=== PATIENT | female | born 1940 | race Caucasian/White ===

== ENCOUNTER 2017-02-25 07:49 | Day surgery (SDC) | payer OTHER, MEDICARE ==
[2017-02-11 10:19] VITALS: BMI 26.4
--- NOTE | 2017-02-18 12:49 | HP ---
Admitting History and Physical - Primary Care Physician PCP: John Galo - Admission Chief Complaint: Right breast cancer History of Present Illness: 76 year old postmenapausal female with family H/O breast cancer. Screening mammogram showed nodular densities 12/2016. Us showed spiculated mass at 6:00 region and three separate small lesions spanning over 1.8cm region. largest focus 6mm. . 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 Breast MRI showed newly diagnosed right breast cancer localized and negative left breast. History Source: Patient Limitations to Obtaining History: No Limitations - Past Medical History Cardiovascular: Yes: Hyperlipdemia Gastrointestinal: Yes: GERD - Past Surgical History Additional Past Surgical History: bunionectomies bilateral - Smoking History Smoking history: Former smoker Have you smoked in the past 12 months: No If you are a former smoker, when did you quit?: 1960S - Alcohol/Substance Use Hx Alcohol Use: Yes (WINE WITH DINNER X SEVERAL WKLY) Home Medications - Allergies Allergies/Adverse Reactions: Allergies Allergy/AdvReac Type Severity Reaction Status Date / Time Sulfa (Sulfonamide Allergy Severe HIVES/ITCHI Verified 02/11/17 10:03 Antibiotics) NG - Home Medications Home Medications: Ambulatory Orders Aspirin Coated [Ecotrin -] 81 mg PO DAILY 02/11/17 Cholecalciferol (Vitamin D3) [Vitamin D3 -] 1,000 unit PO DAILY 02/11/17 Cyanocobalamin [Vitamin B12 -] 1,000 mcg PO DAILY 02/11/17 L.acidoph,Paracasei, B.lactis [Probiotic] 1 each PO DAILY 02/11/17 Omeprazole 40 mg PO HS 02/11/17 Simvastatin 10 mg PO HS 02/11/17 Family Disease History - Family Disease History Family Disease History: CA: Father (small bowel 65) Other Family History: 2 paternal aunts breast ca 60's Physical Examination Constitutional: Yes: Well Nourished, No Distress Breast(s): Yes: Other (ptotic C cup breast wit minimal bruising right breast S/ p core biopsies. on palpation can feel some thickening in recent bx site no suspicious masses or adenopathy palpapted) Problem List - Problems (1) Breast cancer, right Code(s): C50.911 - MALIGNANT NEOPLASM OF UNSP SITE OF RIGHT FEMALE BREAST Qualifiers: Breast location: overlapping sites of breast Patient sex: female Assessment/Plan Right breast wide excision with bracketed mammogram needle localization sentenel node biopsy, lymphoscintogram , possible axillary node dissection intraop radiation
[2017-02-25] MEDS ORDERED: MIDAZOLAM HCL 2 MG/2 ML SINGLE DOSE VIAL ONE (12:52)
[2017-02-25] MEDS ORDERED: ROCURONIUM BROMIDE 50 MG/5 ML VIAL ONE (12:52)
[2017-02-25] MEDS ORDERED: DEXAMETHASONE SOD PHOSPHATE 4 MG/1 ML VIAL ONE (12:52)
[2017-02-25] MEDS ORDERED: ceFAZolin SODIUM 1 GM VIAL ONE (12:52)
[2017-02-25] MEDS ORDERED: ONDANSETRON 4 MG/2 ML VIAL ONE ×2 (12:52→16:56)
[2017-02-25] MEDS ORDERED: PROPOFOL 20 ML ONE (12:52)
[2017-02-25] MEDS ORDERED: LIDOCAINE HCL/PF 2% SDV 5ML VIAL ONE (12:52)
[2017-02-25] MEDS ORDERED: KETOROLAC TROMETHAMINE 30 MG/1 ML VIAL ONE (12:52)
[2017-02-25] MEDS ORDERED: ISOSULFAN BLUE 10 MG/ML VIAL SQ ONE (13:27)
[2017-02-25] MEDS ORDERED: SUCCINYLCHOLINE CHLORIDE 200 MG/10 ML VIAL ONE (14:02)
[2017-02-25] MEDS ORDERED: KETOROLAC TROMETHAMINE 30 MG/1 ML VIAL IVPUSH PRN (16:44)
[2017-02-25] MEDS ORDERED: ONDANSETRON 4 MG/2 ML VIAL IVPB PRN (16:44)
[2017-02-25] MEDS ORDERED: DEXTROSE 5%-0.45% SALINE 1,000 ML IV SCH (16:45)
[2017-02-25] MEDS ORDERED: oxyCODONE HCL 5 MG TABLET PO PRN (16:56)
[2017-02-25] MEDS ORDERED: LACTATED RINGERS SOLUTION 1,000 ML IV SCH (17:00)
--- NOTE | 2017-02-25 17:25 | OP ---
DATE OF OPERATION: 02/25/2017 PREOPERATIVE DIAGNOSIS: Right breast cancer, overlapping regions. POSTOPERATIVE DIAGNOSIS: Right breast cancer, overlapping regions. PROCEDURE: A right breast partial mastectomy with mammographic needle localization, with right axillary sentinel lymph node biopsy and intraoperative radiation using a 4-cm INTRABEAM device. ANESTHESIA: General endotracheal anesthesia. PRIMARY SURGEON: John Galo MD COMPUTER METHODS ANALYST: ANJELICA Damico COMPLICATIONS: There were no complications. Briefly, the patient is a 76-year-old G3, P2, postmenopausal white female of [place] descent with a family history with 2 paternal aunts with breast cancer in their 60s. The patient was found to have a spiculated density in the right breast 6 o'clock region. An ultrasound confirmed 3 separate foci of densities spanning about 1.8 cm. She had 2 ultrasound core biopsies performed which showed infiltrating ductal cancer which was ER/LA positive and HER2/ricky negative. MRI showed localized disease. The patient was told of the need for a wide excision, was offered intraoperative radiation at the same sitting. The patient was seen by the radiation oncologist preoperatively and agreed. She understood the need for a sentinel lymph node biopsy. She was brought in for the procedure on February 25, 2017, and first underwent a mammographic needle localization of the clips in the right breast 6 o'clock region, as well as a lymphoscintigraphy at [facility], then was brought to the [place] [facility]. In the holding area, site verification was made, and informed consent was obtained. DESCRIPTION OF PROCEDURE: The patient was brought to the operating room and laid on the OR table in the supine position. Venodynes were placed on the lower extremities prior to induction. She received a gram of Ancef prior to incision. The right breast was sterilely prepped and draped in the usual fashion with the right breast prepped in the field. Lymphazurin blue 3 mL was injected intradermally and peritumorally around the needle localization site, and massage was instituted. An incision was made just above the hair-bearing area of the right axilla, and dissection was undertaken. Two sentinel nodes were easily found. The first node had a 10-second gamma count of 9812 and was blue and hot. The second node had a 10-second gamma count of 638. These were both sent for permanent section in formalin. Background count of these 2 nodes was 397. Hemostasis was achieved, and the axillary wound was closed using interrupted 2-0 plain suture, then interrupted 3-0 deep dermal Vicryl suture and a running 4-0 subcuticular Monocryl suture. At this point, the wide excision was undertaken around the 6 o'clock region of the right breast through a periareolar approach. Incision was made. Dissection was undertaken around the needle localization site, and the breast tissue was completely removed from around the wire with the wire intact within the middle of the specimen. The specimen was oriented with a long lateral, short-tipped superior suture, and specimen radiographs showed removal of the 2 clips in question. Separate margins were then taken on the superior, inferior, medial, lateral, deep, and anterior aspects with sutures marking the biopsy cavity sides. There was a separate furthest medial margin also sent with a suture marking the biopsy cavity side, and these were all sent to Pathology in formalin as specimen. Hemostasis was achieved, and the wound was copiously irrigated. Intraoperative radiation was then accomplished using a 4-cm INTRABEAM device. The best tissue was pursestring around the device during the radiation. Ultrasound was used showing the distance of the skin from the device to be greater than 1 cm in all quadrants. At this point, after the radiation was completed, after about 30 minutes, the INTRABEAM device was removed and the breast tissue was undermined and a 3 x 4 cm tissue transfer closure was accomplished, reapproximating the breast tissue in the inferior aspect of the right breast. The skin was then closed using interrupted 3-0 deep dermal Vicryl suture and a running 4-0 subcuticular Biosyn suture. Mastisol and Steri-Strips were applied over the wounds. A compressive dressing placed over this. She will be placed in a surgical bra postoperatively. The patient will be able to be discharged home the same day once discharge criteria are met. She is to follow up in the office in 1 week for a formal wound pathology check. All sponge and needle counts are correct at the end of the case. Estimated blood loss was minimal. Balta [id number]
[2017-02-25 18:12] VITALS: PULSE 71; TEMP 97.8
[2017-02-25] MEDS ORDERED: oxyCODONE HCL 5 MG TABLET ONE (18:18)
[2017-02-25 18:56] VITALS: BP 150/82
--- NOTE | 2017-02-26 06:03 | OP ---
DATE OF OPERATION: 02/25/2017 PREOPERATIVE DIAGNOSIS: Right breast cancer. POSTOPERATIVE DIAGNOSIS: Right breast cancer. PROCEDURE: Post lumpectomy, intraoperative radiotherapy for right breast cancer. ATTENDING SURGEON: John Galo MD SOLUTIONS MANAGER/RADIATION ONCOLOGIST: Rosalino Maldonado MD ANESTHESIA: General. COMPLICATIONS: None. INDICATIONS: The patient is a 76-year-old woman who had a mass in the right breast which was followed by a mammogram and ultrasound diagnosing multiple nodules. Core biopsy confirmed a moderately differentiated invasive ductal carcinoma at the 6 o'clock position, ER/DE-positive, HER2-negative. She is a candidate for breast conservation and entered the target US study. DESCRIPTION OF PROCEDURE: Dr. Galo performed right lumpectomy and sentinel node biopsy, which he has dictated. After excision of additional margins, the lumpectomy cavity was sized for a 4-cm applicator. The applicator was placed in the operative cavity at the 6 o'clock aspect of the right breast. The surrounding breast tissue was cinched around the applicator with a pursestring suture. To ensure that the applicator was located within the operative bed, a clinical and ultrasound simulation was performed, this with close apposition to the surrounding breast tissue to the surface of the applicator. Saline-soaked gauze was placed between the skin and the breast tissue to ensure adequate separation between the skin and the applicator. Ultrasound measurements confirm the minimum separation of 1.49 cm at the 6 o' clock position of the applicator. The applicator was pulled away from the chest to minimize dose to the underlying organs. Shielding material was placed over the breast to reduce scattered radiation. The patient received a dose of 20 Gy prescribed to the applicator surface 0 mm with a 50KV x-ray beam. Prior to treatment, the system was double-checked by our physicist with appropriate quality assurance coach measures. The time required for the treatment was 27 minutes and 7 seconds at a dose rate of 0.738 Gy per minute. When the treatment was completed, a survey of the patient in the room confirmed that the Intrabeam source was off. There were no complications or unexpected interruptions. Dr. Galo removed the applicator from the patient and completed the surgery. The patient was discharged to the recovery room. ROSALINO MALDONADO M.D. BETTYE/[id number] cc: John Galo MD MTDD
--- NOTE | 2017-02-28 12:17 | PATH ---
Surgical Pathology Report Patient Name: KIMBERLEE LOPEZ [facility]. Rec. #: [id number] /Age/Gender: 1940 (Age: 76) / F Account: [id number] Location: [facility] AMB[facility]ORY Taken: 02/25/2017 Received: 02/25/2017 Reported: 02/28/2017 Physicians: John Galo M.D. Specimen(s) Received A: RIGHT BREAST WIDE EXCISIOM B: RIGHT AXILLARY SENTINEL NODE #1 C: RIGHT AXILLARY SENTINEL NODE #2 D: RIGHT BREAST POSTERIOR MARGIN E: RIGHT BREAST MEDIAL MARGIN F: RIGHT BREAST LATERAL MARGIN G: RIGHT BREAST INFERIOR MARGIN H: RIGHT BREAST SUPERIOR MARGIN I: RIGHT BREAST FURTHEST MEDIAL MARGIN J: RIGHT BREAST ANTERIOR MARGIN Clinical History Invasive Final Diagnosis A. RIGHT BREAST, WIDE EXCISION WITH WIRE LOCALIZATION: MODERATELY DIFFERENTIATED INVASIVE DUCTAL CARCINOMA, MARCIAL GRADE 2 OF 3 (TUBULE SCORE 2 OF 3, NUCLEAR GRADE 3 OF 3, MITOTIC SCORE 1 OF 3, TOTAL 6 OF 9), MEASURING 0.9 CM IN GREATEST DIMENSION. 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 INVASIVE DUCTAL CARCINOMA DIRECTLY EXTENDS TO THE INFERIOR ASPECT OF THIS SPECIMEN, AND IS LESS THAN 1 MM FROM THE ANTERIOR ASPECT OF THIS SPECIMEN (SEE SPECIMENS D-J FOR FINAL MARGINS). DCIS IS 2 MM FROM THE ANTERIOR ASPECT OF THIS SPECIMEN (SEE SPECIMENS D-J FOR FINAL MARGINS). NO LYMPH-VASCULAR INVASION IDENTIFIED. CHANGES CONSISTENT WITH PRIOR BIOPSY SITE PRESENT. B. LYMPH NODE, RIGHT AXILLARY SENTINEL NODE #1, EXCISION: ONE BENIGN LYMPH NODE (0/1) BY STANDARD HEMATOXYLIN AND EOSIN STAIN (MULTIPLE LEVELS EXAMINED). C. LYMPH NODE, RIGHT AXILLARY SENTINEL NODE #2, EXCISION: ONE BENIGN LYMPH NODE (0/1) BY STANDARD HEMATOXYLIN AND EOSIN STAIN (MULTIPLE LEVELS EXAMINED). D. RIGHT BREAST, POSTERIOR MARGIN, EXCISION: BENIGN BREAST TISSUE. E. RIGHT BREAST, MEDIAL MARGIN, EXCISION: BENIGN BREAST TISSUE WITH FIBROCYSTIC CHANGES INCLUDING STROMAL FIBROSIS, DUCTAL DILATATION, AND CYSTIC APOCRINE METAPLASIA. F. RIGHT BREAST, LATERAL MARGIN, EXCISION: BENIGN BREAST TISSUE WITH FIBROCYSTIC CHANGES INCLUDING STROMAL FIBROSIS AND DUCTAL DILATATION. G. RIGHT BREAST, INFERIOR MARGIN, EXCISION: BENIGN FIBROFATTY TISSUE. H. RIGHT BREAST, SUPERIOR MARGIN, EXCISION: BENIGN BREAST TISSUE WITH FIBROCYSTIC CHANGES INCLUDING STROMAL FIBROSIS AND DUCTAL DILATATION. I. RIGHT BREAST, FURTHEST MEDIAL MARGIN, EXCISION: BENIGN BREAST TISSUE. J. RIGHT BREAST, ANTERIOR MARGIN, EXCISION: BENIGN BREAST TISSUE. Comment: Also see prior Slide Review [id number]. Comments Breast Invasive Carcinoma: Surgical Pathology Cancer Case Summary Based on AJCC/UICC TNM, 7th edition Procedure _X__ Excision with image-guided localization Lymph Node Sampling (select all that apply) (required only if lymph nodes are present in the specimen) _X__ [place] lymph node(s) Specimen Laterality _X__ Right Tumor Size: Size of Largest Invasive Carcinoma Greatest dimension of largest focus of invasion over 1 mm: 9 mm Tumor Focality _X__ Single focus of invasive carcinoma Macroscopic and Microscopic Extent of Tumor Skin _X__ Invasive carcinoma does not invade into the dermis or epidermis Nipple _X__ Not applicable (excisions less than total mastectomy) Ductal Carcinoma In Situ (DCIS) _X__ DCIS is present _X__ as a minor component (< 25% of tumor) Histologic Type of Invasive Carcinoma : _X__ Invasive carcinoma of no special type (ductal, not otherwise specified) Histologic Grade: ([place] Histologic Score) Tubular Differentiation _X__ Score 2 Nuclear Pleomorphism _X__ Score 3 Mitotic Rate _X__ Score 1 Overall Grade _X__ Grade 2: scores of 6 or 7 (moderately differentiated) Margins _X__ Margins uninvolved by invasive carcinoma (required only if residual invasive carcinoma is present in specimen) Distance from closest margin: Cannot be determined. Invasive carcinoma is present at the inferior aspect of the wide excision and less than 1 mm from the anterior aspect of the wide excision (Specimen A), but is not present in the final margins (Specimens D-J) _X__ Margins uninvolved by DCIS (required only if residual DCIS is present in specimen) Distance from closest margin: Cannot be determined. DCIS is 2mm from the anterior aspect of the wide excision(Specimen A), but is not present in the final margins (Specimens D-J) Lymph-Vascular Invasion _X__ Not identified Lymph Nodes Total number of lymph nodes examined (sentinel and nonsentinel): 2 Number of sentinel lymph nodes examined: 2 Number of lymph nodes with macrometastases ( > 2 mm): 0 Number of lymph nodes with micrometastases (>0.2 mm to 2 mm and/or >200cells):0 Number of lymph nodes with isolated tumor cells (=0.2 mm and =200 cells): 0 Extranodal Extension _X__ Not applicable Pathologic Staging (pTNM) Primary Tumor (Invasive Carcinoma): pT1b Regional Lymph Nodes (pN): pN0(sn) Biomarker Studies Results of ER and CO studies performed on this specimen (block A1) at [facility] are as follows: ER (clone [id number] mouse monoclonal antibody by [employer]): >95% nuclear staining with moderate intensity (Positive). CO (clone16 mouse monoclonal antibody by [employer]) : >95% nuclear staining with moderate intensity (Positive). Results of Her2 (IHC) & Ki-67 studies performed on this specimen (A1) at [place], [place] ( [id number]) are as follows: Her2 IHC (EP3 from [employer], formerly known as [id number], using Barron Polymer Refine detection kit): 1+ Negative Ki67: ~25% (Intermediate proliferative index) Positive and negative controls (internal if applicable) show appropriate results. Formalin fixation and cold ischemic times are within current ASCO/CAP recommendations for ER, CO and Her2 testing. Electronically Signed Vishal Burciaga M.D. Gross Description A. Received in formalin, labeled "right breast wide excision," is a 5.0 x 4.7 x 2.2 cm. payne-yellow, irregular, portion of fibroadipose tissue with a needle localization wire present. There is a short suture marking the superior aspect and a long suture marking the lateral aspect, per the surgeon. There is no skin or nipple present. The specimen is inked as follows: superior and lateral blue; inferior green; medial yellow; anterior red; deep black. The specimen is serially sectioned from superior to inferior. Sectioning reveals a 0.9 x 0.7 x 0.7 cm payne, indurated mass abutting the inferior, medial and anterior margins. The mass is at 0.5 cm from the deep margin. The remaining margins appear clear of the mass. T[place]man sections are submitted in 6 cassettes as follows: 1-full face section of mass with inferior margin; 2-additional mass with inferior margin; 3-4-mass with medial, anterior and deep margins; 5-lateral margin; 6-superior margin. Time to formalin fixation: Less than one minute Total formalin fixation time: Approximately 27 hours. B. Received in formalin labeled "right axillary sentinel node #1," is a 0.9 x 0.8 x 0.5 cm payne, irregular lymph node with attached fat. The specimen is bisected and entirely submitted in one cassette. C. Received in formalin labeled "right axillary sentinel node #2," is a 0.5 x 0.4 x 0.4 cm payne, irregular lymph node with attached fat. The specimen is bisected and entirely submitted in one cassette. D. Received in formalin labeled "right breast posterior margin," is a 4.0 x 2.9 x 1.0 cm irregular portion of fibroadipose tissue with a suture marking the biopsy cavity side, per the surgeon. The new margin is inked blue and the specimen is serially sectioned. The specimen is entirely and sequentially submitted in 4 cassettes. E. Received in formalin labeled "medial margin right breast," is a 3.4 x 2.0 x 1.0 cm irregular portion of fibroadipose tissue with a suture marking the biopsy cavity side, per the surgeon. The new margin is inked blue and the specimen is serially sectioned. The specimen is entirely submitted in 4 cassettes. F. Received in formalin labeled "lateral margin right breast," is a 3.0 x 2.2 x 1.0 cm irregular portion of fibroadipose tissue with a suture marking the biopsy cavity side, per the surgeon. The new margin is inked blue and the specimen is serially sectioned. The specimen is entirely and sequentially submitted in 4 cassettes. G. Received in formalin labeled "inferior margin right breast," is a 2.5 x 2.1 x 1.1 cm irregular portion of fibroadipose tissue with a suture marking the biopsy cavity side, per the surgeon. The new margin is inked blue and the specimen is serially sectioned. The specimen is entirely submitted in 3 cassettes. H. Received in formalin labeled "superior margin right breast," is a 2.0 x 1.8 x 0.8 cm irregular portion of fibroadipose tissue with a suture marking the biopsy cavity side, per the surgeon. The new margin is inked blue and the specimen is serially sectioned. The specimen is entirely submitted in 3 cassettes. I. Received in formalin labeled "furthest medial margin right breast," is a 3.5 x 2.1 x 1.0 cm irregular portion of fibroadipose tissue with a suture marking the biopsy cavity side, per the surgeon. The new margin is inked blue and the specimen is serially sectioned. The specimen is entirely submitted in 3 cassettes. J. Received in formalin labeled "anterior margin right breast," is a 3.8 x 1.6 x 0.9 cm irregular portion of fibroadipose tissue with a suture marking the biopsy cavity side, per the surgeon. The new margin is inked blue and the specimen is serially sectioned. The specimen is entirely submitted in 3 cassettes. 02/26/2017 [facility]02/26/2017
== END 2017-02-25 18:55 | disposition home or self-care (01) ==
LOC: FASU 07:49
PROVIDERS: ATTEND Surgery Surgical Oncology
PROC: 0HBT0ZZ Excision of Right Breast, Open Approach (ICD-10-PCS; principal; 2017-02-25 14:24)
PROC: 0HBT0ZX Excision of Right Breast, Open Approach, Diagnostic (ICD-10-PCS; 2017-02-25 14:24)
PROC: DMY17ZZ Contact Radiation of Right Breast (ICD-10-PCS; 2017-02-25 14:24)
DX: C50.811 Malignant neoplasm of overlapping sites of right female breast (principal)
CPT/HCPCS: 19281; 76641-TC-50; 77290; 77300; 77316; 77370-TC; 77424; 78195-TC; 88307-TC; 88342-TC; 94760; A9541; C9726

== ENCOUNTER 2018-10-27 06:13 | Day surgery (SDC) | payer OTHER, MEDICARE ==
[2018-10-12 14:54] VITALS: BMI 26.0
[2018-10-27] MEDS ORDERED: TROPICAMIDE 1% OPHTH SOLN 15 ML BOTTLE ONE (06:33)
[2018-10-27] MEDS: CYCLOPENTOLATE HCL 1% OPHTH SOLN 2 ML BOTTLE OS SCH ×5 (06:45→07:05)
[2018-10-27] MEDS: PHENYLEPHRINE 2.5% OPHTH SOLN 15 ML BOTTLE OS SCH ×5 (06:45→07:05)
[2018-10-27] MEDS: GENTAMICIN SULFATE 0.3% OPHTHALMIC (EYE DROPS) 5ML BOTTLE OS SCH ×5 (06:45→07:05)
[2018-10-27] MEDS: TROPICAMIDE 1% OPHTH SOLN 15 ML BOTTLE OS SCH ×5 (06:45→07:05)
[2018-10-27] MEDS: KETOROLAC TROMETHAMINE 0.5% EYE DROP 1 DROP DROPS OS SCH ×5 (06:45→07:05)
[2018-10-27] MEDS ORDERED: EPI-SHUGARCAINE (EPINEPHRINE 0.025% & LIDOCAINE-PF 0.75%) 4ML ONE (07:12)
[2018-10-27] MEDS ORDERED: BACITRACIN/POLYMYXIN OPH OINT 3.5 GM TUBE ONE (07:12)
[2018-10-27] MEDS ORDERED: BETAXOLOL HCL 0.25% OPHTHALMIC 10 ML DROPSBTL ONE (07:12)
[2018-10-27] MEDS ORDERED: TETRACAINE 0.5% OPHTH SOLN 2 ML BOTTLE ONE (07:13)
[2018-10-27] MEDS ORDERED: EPINEPHrine/PF 1 MG/1 ML (1:1,000) AMPULE ONE (07:13)
[2018-10-27] MEDS ORDERED: ACETYLCHOLINE 1:100 INTRA-OCUL 20 MG/2 ML KIT ONE (07:13)
[2018-10-27] MEDS ORDERED: POVIDONE-IODINE 5% OPHTHALMIC PREP 30 ML SOLUTION ONE (07:13)
[2018-10-27] MEDS ORDERED: NEO/POLYMYX B SULF/DEXAMETH OPHTHALMIC 5ML BOTTLE ONE (07:14)
[2018-10-27] MEDS ORDERED: MIDAZOLAM HCL 2 MG/2 ML SINGLE DOSE VIAL ONE (07:17)
[2018-10-27] MEDS ORDERED: ACETAMINOPHEN 325 MG TABLET (FP) PO PRN (08:58)
[2018-10-27 09:13] VITALS: TEMP 98
[2018-10-27 09:40] VITALS: BP 116/60; PULSE 56
--- NOTE | 2018-10-27 09:58 | OP ---
DATE OF OPERATION: 10/27/2018 PREOPERATIVE DIAGNOSIS: Cataract, left eye. POSTOPERATIVE DIAGNOSIS: Cataract, left eye. PROCEDURE: Cataract extraction via phacoemulsification with insertion of posterior chamber lens implant, left eye. SURGEON: Aric Aguila MD [employer] LIAISON OFFICER: Vilma Ackerman MD ANESTHESIA: Topical with sedation. ESTIMATED BLOOD LOSS: Less than 1 mL. COMPLICATIONS: None. SPECIMENS: None. DESCRIPTION OF PROCEDURE: The patient was identified in the holding area. After all risks, benefits, and alternatives were explained to the patient, informed consent was obtained. The left eye was then marked with a marking pen. The patient then entered the operating room on an eye stretcher. After formal time-out was performed, tetracaine eye drops were instilled onto the left eye. The left eye was then prepped and draped in the usual sterile fashion. An eyelid speculum was placed beneath the eyelid of the left eye. An inferotemporal paracentesis incision was created using [id number]-[id number] blade. Topical preservative-free epinephrine and preservative-free lidocaine was then injected into the anterior chamber. A viscoelastic was then injected into the anterior chamber. A 2.4-mm keratome blade was then used to make a superotemporal incision. A 360-degree continuous curvilinear capsulorrhexis was then created using bent cystotome and Utrata forceps. Hydrodissection was performed using balanced saline solution on a cannula. Phacoemulsification was introduced to disassemble and remove the nucleus in its entirety. Irrigation/aspiration was then used to remove any remaining cortical material from the eye. The capsular bag was reformed using viscoelastic. An Misael Model [id number] with a power of 18.0 diopter serial number [id number] was inspected and found to be defect free and injected into the capsular bag. Irrigation/aspiration was then used to remove any remaining viscoelastic from the eye. The anterior chamber was reformed using balanced saline solution. Intracameral injections of Miochol and Miostat were then administered, and the pupil came down and was round. All wounds were hydrated with balanced saline solution and noted to be watertight. The anterior chamber was deep. There was a red reflex present. The eye had adequate pressure, and the lens was perfectly centered in the capsular bag. Topical antibiotic eyedrops and ointment were then administered to the left eye. The left eye was shielded after the eyelid speculum was removed from the left eye. The patient tolerated the procedure well and left the operating room in stable condition to follow up in the eye clinic tomorrow at 9 o'clock. ARIC AGUILA M.D. GRIFFIN/[id number]
== END 2018-10-27 09:45 | disposition home or self-care (01) ==
LOC: FASU 06:13
PROVIDERS: ATTEND Ophthalmology
PROC: 08RK3JZ Replacement of Left Lens with Synthetic Substitute, Percutaneous Approach (ICD-10-PCS; principal; 2018-10-27 08:32)
DX: H26.9 Unspecified cataract (principal)

== ENCOUNTER 2019-10-12 07:08 | Day surgery (SDC) | payer OTHER, MEDICARE ==
[2019-10-04 14:18] VITALS: BMI 27.8
[2019-10-12] MEDS ORDERED: TROPICAMIDE 1% OPHTH SOLN 15 ML BOTTLE OD SCH (07:30)
[2019-10-12] MEDS ORDERED: OFLOXACIN 0.3% OPHTHALMIC SOLUTION 5 ML BOTTLE OD SCH (07:30)
[2019-10-12] MEDS ORDERED: PHENYLEPHRINE 2.5% OPHTH SOLN 15 ML BOTTLE OD SCH (07:30)
[2019-10-12] MEDS ORDERED: KETOROLAC TROMETHAMINE 0.5% EYE DROP 1 DROP DROPS OD SCH (07:30)
[2019-10-12] MEDS ORDERED: CYCLOPENTOLATE HCL 1% OPHTH SOLN 2 ML BOTTLE OD SCH (07:30)
[2019-10-12] MEDS: PHENYLEPHRINE 2.5% OPHTH SOLN 15 ML BOTTLE ONE ×5 (07:35→07:55)
[2019-10-12] MEDS: OFLOXACIN 0.3% OPHTHALMIC SOLUTION 5 ML BOTTLE ONE ×5 (07:35→07:55)
[2019-10-12] MEDS: CYCLOPENTOLATE HCL 1% OPHTH SOLN 2 ML BOTTLE ONE ×5 (07:35→07:55)
[2019-10-12] MEDS: TROPICAMIDE 1% OPHTH SOLN 15 ML BOTTLE ONE ×5 (07:35→07:55)
[2019-10-12] MEDS: KETOROLAC TROMETHAMINE 0.5% EYE DROP 1 DROP DROPS ONE ×5 (07:35→07:55)
[2019-10-12] MEDS ORDERED: BACITRACIN/POLYMYXIN OPH OINT 3.5 GM TUBE ONE (08:39)
[2019-10-12] MEDS ORDERED: EPI-SHUGARCAINE (EPINEPHRINE 0.025% & LIDOCAINE-PF 0.75%) 4ML ONE (08:40)
[2019-10-12] MEDS ORDERED: NEO/POLYMYX B SULF/DEXAMETH OPHTHALMIC 5ML BOTTLE ONE (08:40)
[2019-10-12] MEDS ORDERED: POVIDONE-IODINE 5% OPHTHALMIC PREP 30 ML SOLUTION ONE (08:40)
[2019-10-12] MEDS ORDERED: TETRACAINE 0.5% OPHTH SOLN 2 ML BOTTLE ONE (08:40)
[2019-10-12] MEDS ORDERED: BETAXOLOL HCL 0.25% OPHTHALMIC 10 ML DROPSBTL ONE (08:40)
[2019-10-12] MEDS ORDERED: MIDAZOLAM HCL 2 MG/2 ML SINGLE DOSE VIAL ONE (09:12)
[2019-10-12 10:03] VITALS: TEMP 98.3
[2019-10-12] MEDS ORDERED: ACETAMINOPHEN 325 MG TABLET (FP) PO PRN (10:09)
[2019-10-12 10:32] VITALS: BP 142/68; PULSE 60
--- NOTE | 2019-10-12 18:26 | OP ---
DATE OF OPERATION: 10/12/2019 PREOPERATIVE DIAGNOSIS: Cataract, right eye. POSTOPERATIVE DIAGNOSIS: Cataract, right eye. PROCEDURE: Cataract extraction via phacoemulsification with insertion of posterior chamber lens implant, right eye. SURGEON: Aric Aguila MD [employer]ATIONAL SALES EXECUTIVE: Vilma Ackerman MD ANESTHESIA: Topical with sedation. ESTIMATED BLOOD LOSS: Less than 1 mL. COMPLICATIONS: None. SPECIMENS: None. DESCRIPTION OF PROCEDURE: The patient was identified in the holding area. After all risks, benefits, and alternatives were explained to the patient, informed consent was obtained. The right eye was marked with a marking pen. The patient then entered the operating room on an eye stretcher. After formal time-out was performed, topical tetracaine eye drops were instilled onto the right eye. The right eye was then prepped and draped in the usual sterile fashion. An eyelid speculum was placed beneath the eyelid of the right eye. A superotemporal paracentesis incision was created using a 15-degree blade. Topical preservative-free epinephrine and preservative-free lidocaine were then injected into the anterior chamber. Viscoelastic was then injected into the anterior chamber. A 2.4-mm keratome blade was then used to make an infratemporal incision. A 360-degree continuous curvilinear capsulorrhexis was then created using bent cystotome and Utrata forceps. Hydrodissection was performed using balanced saline solution on a cannula. Phacoemulsification was introduced to disassemble and remove the nucleus in its entirety. Irrigation/aspiration was then used to remove any remaining cortical material from the eye. The capsular bag was reformed using viscoelastic. An Misael Model [id number] with a power of 17.5 diopter serial number [id number] was inspected and found to be defect free and injected into the capsular bag. Irrigation/aspiration was then used to remove any remaining viscoelastic from the eye. The anterior chamber was reformed using balanced saline solution. All wounds were hydrated with balanced saline solution and noted to be watertight. There was a red reflex present. The eye had adequate pressure. The anterior chamber was deep, and the lens was perfectly centered in the capsular bag. Topical antibiotic eyedrops and ointment were then administered to the right eye. The eyelid speculum was removed from the right eye. The right eye was shielded. The patient tolerated the procedure well. Left the operating room in stable condition to follow up in the eye clinic tomorrow morning at 10 o'clock. ARIC AGUILA M.D. GRIFFIN/[id number]
== END 2019-10-12 10:35 | disposition home or self-care (01) ==
LOC: FASU 07:08
PROVIDERS: ATTEND Ophthalmology
PROC: 08RJ3JZ Replacement of Right Lens with Synthetic Substitute, Percutaneous Approach (ICD-10-PCS; principal; 2019-10-12 09:22)
DX: H26.9 Unspecified cataract (principal)